=== PATIENT | male | born 1960 ===

== ENCOUNTER 2019-02-16 06:01 | Day surgery (SDC) | payer BC ==
[~2019-02-16] VITALS: Ht 167.6 cm; Wt 96.2 kg
[2019-02-16] VITALS (8 sets, daily range): BP systolic 101–126; BP diastolic 58–78
[~2019-02-16 06:01] MED LIST: NKM
[2019-02-16] MEDS ORDERED: KLONOPIN0.5 MG ORAL (06:36)
[2019-02-16] MEDS ORDERED: fentaNYL 100 mcg/2 mL IV ONE (06:37)
[2019-02-16] MEDS ORDERED: Midazolam 2mg/2ml Inj ONE (06:38)
[2019-02-16] MEDS ORDERED: LR 1000ml ONE (07:00)
[2019-02-16] MEDS ORDERED: Propofol 200mg/20ml IV ONE (07:00)
[2019-02-16] MEDS ORDERED: LR 1000ml 1,000 ML IVLG SCH ×2 (07:06→08:12)
--- NOTE | 2019-02-16 07:06 | Anethesia Preoperative Eval ---
Anesthesia Pre-op PMH/ROS General Date of Evaluation: Feb 16, 2019 Time of Evaluation: 06:56 Anesthesiologist: Delores ASA Score: ASA 2 Mallampati Score Class I : Soft palate, uvula, fauces, pillars visible Class II: Soft palate, uvula, fauces visible Class III: Soft palate, base of uvula visible Class IV: Only hard plate visible Mallampati Classification: Class II Surgeon: Aletha Diagnosis: Abdominal pain Surgical Procedure: EGD Anesthesia History: none Family History: no anesthesia problems Allergies: Coded Allergies: No Known Allergies (Unverified , 02/16/19) Medications: see eMAR Patient NPO?: Yes Past Medical History Cardiovascular: Denies: HTN, CAD, AR, valve dz, arrhythmia, other Pulmonary: Denies: asthma, COPD, HOWARD, other Gastrointestinal/Genitourinary: Reports: GERD; Denies: CRI, ESRD, other Neurologic/Psychiatric: Denies: dementia, CVA, depression/anxiety, TIA, other Endocrine: Denies: DM, hypothyroidism, steroids, other HEENT: Denies: cataract (L), cataract (R), glaucoma, TAZLINA (L), TAZLINA (R), other Hematology/Immune: Denies: anemia, DVT, bleeding disorder, other Musculoskeletal/Integumentary: Denies: OA, RA, DJD, DDD, edema, other Other: obesity PMH Narrative: as above PSxH Narrative: Colonoscopy Anesthesia Pre-op Phys. Exam Physician Exam Last Vital Signs Date Time Temp Pulse Resp B/P (MAP) Pulse Ox O2 Delivery O2 Flow Rate FiO2 02/16/19 06:36 97.5 66 18 126/78 98 Room Air Constitutional: NAD Neurologic: CN 2-12 intact Cardiovascular: RRR, no M/R/G Respiratory: CTA Gastrointestinal: other - obesity Airway Exam Mallampati Score: Class II MO: limited Neck: short ROM: limited Teeth: intact Dentures: no upper, no lower Anesthesia Pre-op A/P Risk Assessment & Plan Assessment: ASA 2 Plan: MAC Status Change Before Surgery: No Shukri Estrella MD Feb 16, 2019 07:06
--- NOTE | 2019-02-16 07:10 | Short Stay Surgery H&P ---
History of Present Illness History of Present Illness Chief Complaint see attached H&P HPI Dmitry Hook is a 58 year old male who was admitted on for GERD Patient History Allergies: Coded Allergies: No Known Allergies (Unverified , 02/16/19) Medication History Scheduled Clonazepam* (Klonopin*), 0.25 MG ORAL BEDTIME, (Reported) Physical Exam Vital Signs Last Vital Signs Date Time Temp Pulse Resp B/P (MAP) Pulse Ox O2 Delivery O2 Flow Rate FiO2 02/16/19 06:55 Room Air 02/16/19 06:36 97.5 66 18 126/78 98 Plan Attestation Are the patient's medical conditions optimized for surgery? Annamarie Ferrell MD Feb 16, 2019 07:10
--- NOTE | 2019-02-16 07:11 | Pre-Procedure Note/Attestation ---
Pre-Procedure Note/Attestation Complete Prior to Procedure Planned Procedure: not applicable Procedure Narrative: egd Indications for Procedure Pre-Operative Diagnosis: gastroparesis, eructation, discomfort Attestation I attest that I discussed the nature of the procedure; its benefits; risks and complications; and alternatives (and the risks and benefits of such alternatives ), prior to the procedure, with the patient (or the patient's legal pharmaceutical sales representative). I attest that, if there was a reasonable possibility of needing a blood transfusion, the patient (or the patient's legal pharmaceutical sales representative) was given the [facility] standardized written summary, pursuant to the Yohannes Bryon Blood Safety Act ([place] Health and Safety Code # 1645, as amended). I attest that I re-evaluated the patient just prior to the surgery and that there has been no change in the patient's H&P, except as documented below: Annamarie Ferrell MD Feb 16, 2019 07:11
[2019-02-16] MEDS ORDERED: fentaNYL 100 mcg/2 mL IV PRN (07:15)
--- NOTE | 2019-02-16 07:44 | Endoscopy Procedure Note ---
Endoscopy Procedure Note General Indication for Procedure: FRIDA, eructation, discomfort Procedures Performed: EGD Operative Findings/Diagnosis: gastric nodules Specimen: yes Pt Tolerated Procedure Well: Yes Estimated Blood Loss: none Anesthesia Anesthesiologist: see report Anesthesia: MAC Medications Medication Given: see anesthesia record Inserted Devices Implant(s) used?: No GI Core Measures 50 yrs or older w/o bx or poly: Not Applicable 10yrs. F/U recommended: Not Applicable Annamarie Ferrell MD Feb 16, 2019 07:44
--- NOTE | 2019-02-16 07:44 | Brief Operative Note ---
Immediate Post Operative Note Operative Note Chief Complaint: discomfort, FRIDA Pre-op Diagnosis: gastroparesis, eructation, discomfort Procedure: egd Post-op Diagnosis: nodules Surgeon: don Specimen: yes Complications: none Condition: stable Fluids: see report Estimated Blood Loss: none Drains: none Implant(s) used?: No Annamarie Ferrell MD Feb 16, 2019 07:44
--- NOTE | 2019-02-16 07:50 | Immediate Post-Op Evaluation ---
Immediate Post-Op Evalulation Immediate Post-Op Evalulation Procedure: EGD with Bx Date of Evaluation: Feb 16, 2019 Time of Evaluation: 07:49 IV Fluids: 600 Blood Products: none Estimated Blood Loss: min Urinary Output: none Blood Pressure Systolic: 105 Blood Pressure Diastolic: 60 Pulse Rate: 67 Respiratory Rate: 20 O2 Sat by Pulse Oximetry: 96 Temperature (Fahrenheit): 97.6 Pain Score (1-10): 1 Nausea: No Vomiting: No Complications none Patient Status: reacts, patent, none Hydration Status: adequate Shukri Estrella MD Feb 16, 2019 07:50
--- NOTE | 2019-02-16 08:47 | 48 Hour Post Anesthesia Eval ---
Post Anesthesia Evaluation Procedure: EGD with Bx Date of Evaluation: Feb 16, 2019 Time of Evaluation: 08:46 Blood Pressure Systolic: 112 0: 74 Pulse Rate: 68 Respiratory Rate: 20 Temperature (Fahrenheit): 97.6 O2 Sat by Pulse Oximetry: 98 Airway: patent Nausea: No Vomiting: No Pain Intensity: 1 Hydration Status: adequate Cardiopulmonary Status: stable Mental Status/LOC: patient returned to baseline Follow-up Care/Observations: n/a Post-Anesthesia Complications: none Follow-up care needed: ready to discharge Shukri Estrella MD Feb 16, 2019 08:47
--- NOTE | 2019-02-16 15:45 | Operative Note - Dictated ---
DATE OF OPERATION: 02/16/2019 GASTROENTEROLOGY PROCEDURE REPORT PROCEDURE: Upper gastrointestinal endoscopy with biopsy. SURGEON: Annamarie Ferrell M.D. ANESTHESIA: Shukri Estrella M.D. PRE-ENDOSCOPIC DIAGNOSIS: Eructation. POST-ENDOSCOPIC DIAGNOSES: 1. A 1 cm submucosal antrum nodule, status post multiple biopsies. 2. A 1.5 cm submucosal fundus nodule, status post multiple biopsies. 3. Two diminutive cardia area mucosal nodules, status post biopsy removal. 4. Status post random biopsies of the duodenum, throughout antrum, throughout fundus, and also lower esophagus, which were sent to pathology in separate bottles. DESCRIPTION OF PROCEDURE: The procedure, its risks, indications, alternatives, and possible complications were explained to the patient and informed consent was obtained. The patient was then sedated in the left lateral decubitus position. A diagnostic upper endoscope was introduced through the oropharynx and advanced to the duodenum. The endoscope was then gradually withdrawn and mucosa examined carefully. Examination of the upper gastrointestinal mucosa was notable for above findings. Multiple biopsies were performed and sent to pathology in separate bottles. There were no ulcerations identified and gastric contractile activity was noted. The endoscope was then removed and the patient was sent to recovery in good condition. COMPLICATIONS: None. ASSESSMENT: There are no clear endoscopic pathologies seen to explain the patient's worsening eructation. Biopsies will be evaluated to rule out microscopic evidence of disease. Consideration can be made to performing a followup endoscopic ultrasound to evaluate these submucosal lesions. The patient will be instructed to complete his gastric emptying study as already scheduled and also to perform a CT scan of the abdomen and pelvis to rule out any other intraabdominal pathology. RECOMMENDATIONS: 1. Follow up biopsy results. 2. Nuclear medicine gastric emptying study as previously planned. 3. CT scan of the abdomen and pelvis. 4. Outpatient followup review all above test results. Annamarie Ferrell M.D. DR: BETHANIE JOB#: [id number] CC: Annamarie Ferrell M.D.; Fax#: [phone]
== END 2019-02-16 08:55 | disposition home or self-care (01) ==
LOC: GAS 06:01
DX: R14.2 Eructation (principal); K31.89 Other diseases of stomach and duodenum; K21.9 Gastro-esophageal reflux disease without esophagitis; E66.9 Obesity, unspecified; Z68.34 Body mass index [BMI] 34.0-34.9, adult; K29.50 Unspecified chronic gastritis without bleeding
CPT/HCPCS: 43239; J2250; J2704; J3010; 94003; 94150